=== PATIENT | male | born 1990 | race Caucasian/White ===

== ENCOUNTER 2020-01-26 15:07 | Outpatient (CLI) | payer OTHER, SELFPAY ==
[2020-01-26 16:04] LABS: SARS-CoV-2 Ag Negative (Negative)
== END 2020-01-26 15:08 | disposition home or self-care (01) ==
LOC: CHSLAB 15:11
PROVIDERS: PCP Internal Medicine; Visit Provider Internal Medicine
DX: Z20.828 Contact with and (suspected) exposure to other viral communicable diseases (principal)
CPT/HCPCS: 87426

== ENCOUNTER 2020-11-16 14:03 | Outpatient (CLI) | payer OTHER, SELFPAY ==
[2020-11-16 15:05] LABS: SARS-CoV-2 RNA PCR Positive (Negative)
== END 2020-11-16 14:04 | disposition home or self-care (01) ==
LOC: CHSLAB 14:06
PROVIDERS: PCP Internal Medicine; Visit Provider Internal Medicine
DX: U07.1 COVID-19 (principal)
CPT/HCPCS: C9803; U0003; U0005